=== PATIENT | female | born 1960 | race Hispanic/Latino ===

== ENCOUNTER 2018-04-21 09:55 | Emergency (ER) | payer BC ==
[2018-04-21 10:37] VITALS: BP 129/83
[2018-04-21] MEDS ORDERED: TESSALON PERLES PO ONE (11:28)
[2018-04-21] MEDS ORDERED: MOTRIN PO ONE (11:28)
--- NOTE | 2018-04-21 11:47 | Emergency Department Report ---
- General Chief Complaint: Dyspnea/Respdistress Stated Complaint: HEAD CONGESTED/DIZZY/COUGH Time Seen by Provider: 04/21/18 11:23 Source: patient Mode of arrival: Ambulatory Limitations: No Limitations - History of Present Illness Initial Comments: This is a 58-year-old female nontoxic, well nourished in appearance, no acute signs of distress presents to the ED with c/o of productive cough, bilateral ear pain, rhinorrhea, nasal congestion x2 days. Patient describes productive cough as yellow mucus production. Patient denies any sick contact. Patient denies any recent travels, long car, recent hospital stays. Patient denies any calf pain or calf tenderness. Patient denies any chest pain, short of breath, fever, chills, nausea, vomiting, hemoptysis, numbness, tingling, headache or stiff neck. Patient denies any allergies. PMH includes HTN, DM. MD Complaint: cough, rhinorrhea, nasal congestion -: days(s) (2) Severity: mild Severity scale (0 -10): 8 Quality: aching Consistency: constant Improves With: nothing Worsens With: nothing Associated Symptoms: rhinorrhea, nasal congestion, cough, ear pain. denies: fever, chills, myalgias, diaphoresis, headache, sore throat, stiff neck, shortness of breath, abdominal pain, nausea, vomiting, diarrhea, dysuria, rash, confusion, right sweats, weight loss, epistaxis, hoarseness Treatments Prior to Arrival: none - Related Data Home Medications Medication Instructions Recorded Confirmed Last Taken RX: Insulin Glargine,Hum.rec.anlog 10 unit SQ QHS 02/03/14 02/03/14 Unknown [Lantus] RX: Liraglutide [Victoza 2-Ken[place]] 0.6 mg SQ QDAY 02/03/14 02/03/14 Unknown Previous Rx's Medication Instructions Recorded Last Taken Type RX: Aspirin [Aspirin BABY CHEW TAB] 81 mg PO QDAY #30 tab.chew 02/08/14 Unknown Rx RX: Lisinopril [Zestril TAB] 10 mg PO QDAY #30 tablet 02/08/14 Unknown Rx RX: Metoprolol [Lopressor TAB] 50 mg PO Q8HR #90 tablet 02/08/14 Unknown Rx RX: Rosuvastatin (Nf) [Crestor] 20 mg PO QHS #30 tablet 02/08/14 Unknown Rx RX: Ticagrelor [Brilinta] 90 mg PO BID #60 tablet 02/08/14 Unknown Rx oxyCODONE /ACETAMINOPHEN [Percocet 1 tab PO Q6HR PRN #20 tablet 02/08/14 Unknown Rx 5/325] Benzonatate [Tessalon Perle] 100 mg PO Q8H PRN #30 capsule 04/21/18 Unknown Rx Ibuprofen [Motrin] 600 mg PO Q8H PRN #30 tablet 04/21/18 Unknown Rx Loratadine [Claritin] 10 mg PO DAILY #30 tablet 04/21/18 Unknown Rx Prednisone [predniSONE 10 mg 10 mg PO .TAPER #1 tab.ds.pk 04/21/18 Unknown Rx (6-Day Pack, 21 Tabs)] RX: Azithromycin [Zithromax Z-KENYETTA] 250 mg PO DAILY #6 tablet 04/21/18 Unknown Rx Allergies Allergy/AdvReac Type Severity Reaction Status Date / Time No Known Allergies Allergy Unverified 02/03/14 09:46 ED Review of Systems ROS: Stated complaint: HEAD CONGESTED/DIZZY/COUGH Other details as noted in HPI Constitutional: denies: chills, fever Eyes: denies: eye pain, eye discharge, vision change ENT: ear pain. denies: throat pain Respiratory: cough. denies: shortness of breath, wheezing Cardiovascular: denies: chest pain, palpitations Endocrine: no symptoms reported Gastrointestinal: denies: abdominal pain, nausea, diarrhea Genitourinary: denies: urgency, dysuria, discharge Musculoskeletal: denies: back pain, joint swelling, arthralgia Skin: denies: rash, lesions Neurological: denies: headache, weakness, paresthesias Psychiatric: denies: anxiety, depression Hematological/Lymphatic: denies: easy bleeding, easy bruising ED Past Medical Hx - Past Medical History Hx Hypertension: Yes Hx Diabetes: Yes (2002) Hx GERD: Yes - Surgical History Additional Surgical History: c section x 4. hyst. hernia repair. bowel resection. - Social History Smoking Status: Never Smoker Substance Use Type: None - Medications Home Medications: Home Medications Medication Instructions Recorded Confirmed Last Taken Type RX: Insulin Glargine,Hum.rec.anlog 10 unit SQ QHS 02/03/14 02/03/14 Unknown History [Lantus] RX: Liraglutide [Victoza 2-[place]] 0.6 mg SQ QDAY 02/03/14 02/03/14 Unknown History RX: Aspirin [Aspirin BABY CHEW TAB] 81 mg PO QDAY #30 tab.chew 02/08/14 Unknown Rx RX: Lisinopril [Zestril TAB] 10 mg PO QDAY #30 tablet 02/08/14 Unknown Rx RX: Metoprolol [Lopressor TAB] 50 mg PO Q8HR #90 tablet 02/08/14 Unknown Rx RX: Rosuvastatin (Nf) [Crestor] 20 mg PO QHS #30 tablet 02/08/14 Unknown Rx RX: Ticagrelor [Brilinta] 90 mg PO BID #60 tablet 02/08/14 Unknown Rx oxyCODONE /ACETAMINOPHEN [Percocet 1 tab PO Q6HR PRN #20 tablet 02/08/14 Unknown Rx 5/325] Benzonatate [Tessalon Perle] 100 mg PO Q8H PRN #30 capsule 04/21/18 Unknown Rx Ibuprofen [Motrin] 600 mg PO Q8H PRN #30 tablet 04/21/18 Unknown Rx Loratadine [Claritin] 10 mg PO DAILY #30 tablet 04/21/18 Unknown Rx Prednisone [predniSONE 10 mg 10 mg PO .TAPER #1 tab.ds.pk 04/21/18 Unknown Rx (6-Day Pack, 21 Tabs)] RX: Azithromycin [Zithromax Z-KENYETTA] 250 mg PO DAILY #6 tablet 04/21/18 Unknown Rx ED Physical Exam - General Limitations: No Limitations General appearance: alert, in no apparent distress - Head Head exam: Present: atraumatic, normocephalic - Eye Eye exam: Present: normal appearance Pupils: Present: normal accommodation - ENT ENT exam: Present: normal orophraynx, mucous membranes moist, TM's normal bilaterally, normal external ear exam - Neck Neck exam: Present: normal inspection, full ROM. Absent: tenderness, meningismus, lymphadenopathy - Respiratory Respiratory exam: Present: normal lung sounds bilaterally. Absent: respiratory distress, wheezes, rales, rhonchi, stridor, chest wall tenderness, accessory muscle use, decreased breath sounds, prolonged expiratory - Cardiovascular Cardiovascular Exam: Present: regular rate, normal rhythm, normal heart sounds. Absent: irregular rhythm, systolic murmur, diastolic murmur, rubs, gallop - GI/Abdominal GI/Abdominal exam: Present: soft, normal bowel sounds. Absent: distended, tenderness, guarding, rebound, rigid, diminished bowel sounds - Rectal Rectal exam: Present: deferred - Extremities Exam Extremities exam: Present: normal inspection, full ROM, normal capillary refill. Absent: tenderness, joint swelling - Back Exam Back exam: Present: normal inspection, full ROM. Absent: tenderness, CVA tenderness (R), CVA tenderness (L), muscle spasm, paraspinal tenderness, vertebral tenderness, rash noted - Neurological Exam Neurological exam: Present: alert, oriented X3, normal gait - Psychiatric Psychiatric exam: Present: normal affect, normal mood - Skin Skin exam: Present: warm, dry, intact, normal color. Absent: rash ED Course Vital Signs 04/21/18 10:33 Temperature 98.4 F Pulse Rate 91 H Respiratory 20 Rate Blood Pressure 129/83 O2 Sat by Pulse 97 Oximetry - Reevaluation(s) Reevaluation #1: 04/21/18 11:49 Patient is speaking in full sentences with no signs of distress noted. ED Medical Decision Making - Medical Decision Making This is a 58-year-old female that presents with bronchitis. Patient is stable and was examined by me. Chest x-ray has been obtained and dictated by radiologist with normal exam. Patient is notified of x-ray results with no questions noted. Due to patient having symptoms of upper respiratory infection and worsening I will treat patient empirically with zpak. Patient was instructed to increase hydration, rest and take Motrin for fever episodes. Patient received motrin and tesslone perrls in the ED. Vitals stable. Patient is nonfebrile and normal heart rate. Patient was instructed Follow-up with a primary care doctor in 3-5 days or if symptoms worsen and continue return to emergency room as soon as possible. At time time of discharge, the patient does not seem toxic or ill in appearance. No acute signs of distress noted. Patient agrees to discharge treatment plan of care. No further questions noted by the patient. Critical care attestation.: If time is entered above; I have spent that time in minutes in the direct care of this critically ill patient, excluding procedure time. ED Disposition Clinical Impression: Bronchitis Disposition: DC-01 TO HOME OR SELFCARE Is pt being admited?: No Does the pt Need Aspirin: No Condition: Stable Instructions: Acute Bronchitis (ED) Additional Instructions: Follow-up with a primary care doctor in 3-5 days or if symptoms worsen and continue return to emergency room as soon as possible. Prescriptions: RX: Azithromycin [Zithromax Z-KENYETTA] 250 mg PO DAILY #6 tablet Benzonatate [Tessalon Perle] 100 mg PO Q8H PRN #30 capsule PRN Reason: Cough Ibuprofen [Motrin] 600 mg PO Q8H PRN #30 tablet PRN Reason: Pain Loratadine [Claritin] 10 mg PO DAILY #30 tablet Prednisone [predniSONE 10 mg (6-Day Pack, 21 Tabs)] 10 mg PO .TAPER #1 tab.ds.pk Referrals: PRIMARY CARE, [Primary Care Provider] - 3-5 Days PHUC BLAKELY MD [Staff Physician] - 3-5 Days [facility] [Outside] - 3-5 Days [facility] [Outside] - 3-5 Days Forms: Work/School Release Form(ED)
--- NOTE | 2018-04-21 12:04 | XRay Report ---
ROUTINE CHEST, TWO VIEWS: HISTORY: Cough. The trachea, heart, mediastinal contour, lung ocampo and bony thorax are unremarkable. IMPRESSION: Unremarkable chest x-ray.
== END 2018-04-21 13:03 | disposition home or self-care (01) ==
LOC: ED 09:55
DX: J40 Bronchitis, not specified as acute or chronic (principal); I10 Essential (primary) hypertension; E11.9 Type 2 diabetes mellitus without complications; K21.9 Gastro-esophageal reflux disease without esophagitis; Z79.82 Long term (current) use of aspirin
CPT/HCPCS: 71046